=== PATIENT | male | born 1985 | race Two or more races ===

== ENCOUNTER → 2017-09-24 | Emergency (ER) | payer OTHER ==
[~2017-09-24] VITALS: Ht 177.8 cm; Wt 74.8 kg
[~2017-09-24] MED LIST: CIPRO500 MG PO; DICY20TA PO; PROBIOTIC & AC1 EACH PO
== END | disposition home or self-care (01) ==
LOC: ER 00:20
DX: K52.9 Noninfective gastroenteritis and colitis, unspecified (principal)

== ENCOUNTER 2019-03-03 16:19 | Emergency (ER) | payer OTHER ==
[~2019-03-03] VITALS: Ht 180.3 cm; Wt 74.8 kg
== END 2019-03-03 20:56 | disposition home or self-care (01) ==
LOC: ER 16:19
DX: S62.396A Other fracture of fifth metacarpal bone, right hand, initial encounter for closed fracture (principal); S60.221A Contusion of right hand, initial encounter; S00.83XA Contusion of other part of head, initial encounter; W18.39XA Other fall on same level, initial encounter; Y93.89 Activity, other specified; Y92.89 Other specified places as the place of occurrence of the external cause; Y99.8 Other external cause status

== ENCOUNTER → 2019-03-03 | Emergency (ER) | payer OTHER ==
[~2019-03-03] VITALS: Ht 152.4 cm; Wt 74.8 kg
== END | disposition left against medical advice (07) ==
LOC: ER 10:46
DX: Z53.20 Procedure and treatment not carried out because of patient's decision for unspecified reasons (principal)